=== PATIENT | male | born 1985 | race Caucasian/White ===

== ENCOUNTER 2022-01-20 07:46 | Emergency (ER) | payer OTHER ==
[2022-01-20 08:33] LABS: HEMOGLOBIN 14.5 gm/dl (14.0-17.5); RED BLOOD COUNT 5.22 M/UL (4.20-5.50); WHITE BLOOD COUNT 8.5 K/UL (4.5-11.0)
[2022-01-20 08:56] LABS: BUN/CREATININE RATIO 12 (0-10)
[2022-01-20] MEDS ORDERED: PANTOPRAZOLE SO20 MG PO (09:58)
== END 2022-01-20 10:30 | disposition home or self-care (01) ==
LOC: ER1 07:46
PROVIDERS: Physician Assistant
DX: K44.9 Diaphragmatic hernia without obstruction or gangrene (principal); Z87.891 Personal history of nicotine dependence
CPT/HCPCS: 71045; 80053; 82550; 82553; 84484; 85025; 93005; 99285